=== PATIENT | female | born 1935 | race Caucasian/White ===

== ENCOUNTER → 2016-07-11 | Outpatient (CLI) | payer MEDICARE, OTHER ==
[~2016-07-11] MED LIST: ASPI81TA81 PO; CARV25TA PO; CIPR0.2S LEFT EAR; CIPR0.2S RIGHT EAR; CIPR250T2 PO; ESOM1CAP16 PO; FURO20TA PO; GLIP10TA6 PO; LISI10TA3 PO; NIAC500T18 PO; ONETMIS2; ONETTES4; PRED20 PO; SIMV80TA PO; VALA1TAB PO; VENTAER INH; VITA100064 PO
[2016-07-11 15:44] LABS: HEMATOCRIT 37.9 % (35.0-46.0); MEAN CELL VOLUME 80.3 FL (80.0-100.0); MEAN CORPUSCULAR HEMOGLOBIN 26.3 PG (27.0-34.0); MEAN CORPUSCULAR HGB CONC 32.8 % (32.0-36.0); PLATELET COUNT 219 TH/MM3 (150-450); RED BLOOD COUNT 4.72 MIL/MM3 (4.00-5.30); RED CELL DISTRIBUTION WIDTH 13.9 % (11.6-17.2); REVIEW FLAG FINAL; WHITE BLOOD COUNT 7.5 TH/MM3 (4.0-11.0)
[2016-07-11 15:48] LABS: BICARBONATE 28.5 MEQ/L (21.0-32.0); POTASSIUM 4.7 MEQ/L (3.5-5.1)
[2016-07-12 13:23] LABS: HEMOGLOBIN A1b 2.1 %; HEMOGLOBIN Ao 83.7 %; HEMOGLOBIN LA1C 1.6 %; HEMOGLOBIN P3 4.1 %
== END ==
LOC: PLAB 06:45
PROVIDERS: ATTEND Family Medicine
DX: E55.9 Vitamin D deficiency, unspecified (principal); I12.9 Hypertensive chronic kidney disease with stage 1 through stage 4 chronic kidney disease, or unspecified chronic kidney disease; N18.3 Chronic kidney disease, stage 3 (moderate); E11.22 Type 2 diabetes mellitus with diabetic chronic kidney disease
CPT/HCPCS: 36415; 80069; 82306; 83036; 83970; 85027

== ENCOUNTER 2016-11-18 06:42 | Day surgery (SDC) | payer MEDICARE, OTHER ==
[~2016-11-18] VITALS: Ht 154.9 cm; Wt 68.2 kg
[~2016-11-18 06:42] MED LIST changes: -ASPI81TA81 PO; -CIPR0.2S RIGHT EAR; -CIPR250T2 PO; -LISI10TA3 PO; -SIMV80TA PO
[2016-11-18] MEDS ORDERED: SODIUM CHLORIDE 0.9% 1000 ML IV SCH (07:00)
[2016-11-18 07:02] VITALS: BP 169/70; PULSE 77; RESP 20; TEMP 99.3; O2SAT 95
[2016-11-18] MEDS ORDERED: NITR1SUB3 SL (07:28)
[2016-11-18] MEDS ORDERED: NEXI40CA PO (07:28)
[2016-11-18] MEDS ORDERED: NIAC500T5 PO (07:28)
[2016-11-18] MEDS ORDERED: CHOL5000 PO (07:28)
[2016-11-18] MEDS ORDERED: IRON27TA PO (07:28)
[2016-11-18] MEDS ORDERED: ASPI81CH CHEW (07:28)
[2016-11-18] MEDS ORDERED: ceFAZolin 2 GM PREMIX 50 ML - implanted port/tunneled catheter insertion IV SCH (07:30)
[2016-11-18] MEDS ORDERED: VANCOMYCIN 1000 MG/NS 250 ML - implanted port/tunneled catheter IV SCH ×2 (07:30)
[2016-11-18] MEDS ORDERED: MIDAZOLAM HCL 5 MG/5 ML VIAL ONE (07:58)
[2016-11-18] MEDS ORDERED: fentaNYL CITRATE 250 MCG/5 ML AMP ONE (07:58)
[2016-11-18] MEDS ORDERED: POVIDONE IODINE 5% (ANTISEPSIS KIT) 4 APPLICATIONS EACH NARE SCH (08:00)
[2016-11-18] MEDS ORDERED: CHLORHEXIDINE GLUCONATE 2 % 1 PACK (2 CLOTHS) TOPICAL SCH (08:00)
[2016-11-18] MEDS ORDERED: LIDOCAINE 1%/EPINEPHrine 1:100,000 SOLN 20 ML VIAL ONE (08:23)
[2016-11-18 09:10] VITALS: BP 153/64; PULSE 77; RESP 16; TEMP 98.7; O2SAT 94
[2016-11-18 09:25] VITALS: BP 148/62; PULSE 81; RESP 18; O2SAT 96
[2016-11-18 09:55] VITALS: BP 160/77; PULSE 75; RESP 18; O2SAT 97
--- NOTE | 2016-11-18 09:57 | PD.RAD ---
Post Procedure Progress Note Pre Procedure Diagnosis: (1) Small cell lung cancer Post Procedure Diagnosis: (1) Small cell lung cancer Procedure Date: Nov 18, 2016 Supervising Radiologist: Samuel Fernández Proceduralist/Assist: Barb Gibbs, RT(R), Anna Dixon RT(R)() Anesthesia: Conscious Sedation Plan of Activity Patient to Unit: ROPU Patient Condition: Good Additional Comments: right IJ port placed See PACS Report for procedural detail/treatment Samuel Fernández MD Nov 18, 2016 09:57
[2016-11-18] MEDS ORDERED: SODIUM CHLORIDE 0.9% FLUSH 10 ML FLUSH IVF PRN (10:00)
[2016-11-18 10:25] VITALS: BP 154/63; PULSE 76; RESP 18; O2SAT 94
[2016-11-18 11:15] VITALS: BP 144/67; PULSE 81; RESP 18; O2SAT 96
== END 2016-11-18 11:20 | disposition home or self-care (01) ==
LOC: HROP 06:42 → HRIP 06:47 → HROP 11:20
PROVIDERS: ATTEND Internal Medicine
DX: C34.90 Malignant neoplasm of unspecified part of unspecified bronchus or lung (principal); I13.0 Hypertensive heart and chronic kidney disease with heart failure and stage 1 through stage 4 chronic kidney disease, or unspecified chronic kidney disease; N18.9 Chronic kidney disease, unspecified; I50.9 Heart failure, unspecified; I25.2 Old myocardial infarction; E78.00 Pure hypercholesterolemia, unspecified; K22.70 Barrett's esophagus without dysplasia
CPT/HCPCS: 36561; 76937; 77001; 99152; 99153; C1788; J0690; J1642; J2250; J3010; J3370; J7030; J7050

== ENCOUNTER 2016-11-24 12:20 | Inpatient (IN) | payer MEDICARE, OTHER ==
[2016-11-24] VITALS (9 sets, daily range): BP systolic 68–116; BP diastolic 33–68; PULSE 76–127; RESP 18–24; TEMP 98.3–98.4; O2SAT 90–99
[~2016-11-24] VITALS: Ht 157.5 cm; Wt 70.7 kg
[~2016-11-24 12:20] MED LIST changes: +ASPI81CH CHEW; +CHOL5000 PO; -CIPR0.2S LEFT EAR; -ESOM1CAP16 PO; +IRON27TA PO; +NEXI40CA PO; -NIAC500T18 PO; +NIAC500T5 PO; +NITR1SUB3 SL; -ONETMIS2; -PRED20 PO; -VALA1TAB PO; -VENTAER INH; -VITA100064 PO
--- NOTE | 2016-11-24 12:40 | PD ---
HPI Chief Complaint: Respiratory Distress Time Seen by Provider: 12:40 Travel History International Travel<30 days: No Contact w/Intl Traveler<30days: No Traveled to known affect area: No History of Present Illness HPI 81-year-old female with history of CAD, CHF, triple bypass, hypertension, diabetes, metastatic lung cancer followed by Dr. Aponte, resents to the emergency department for evaluation worsening shortness of breath. She reports no chest pain. Denies any episodes of lightheadedness or diaphoresis. Patient is accompanied by her daughter who states she recently finished radiation up in [place]. She is scheduled to start chemotherapy December 07. Patient states this morning she began having worsening shortness of breath. This is with minimal activity and at rest. She states it took her about 3 hours for her to catch her breath prior to calling her daughter to come to the emergency department. She is concerned that she may need to have oxygen at home. She denies any recent illnesses, fever, chills. No other symptoms to report. PFSH Past Medical History Arthritis: No Autoimmune Disease: No Heart Rhythm Problems: No Cancer: No Cardiac Catheterization: Yes Cardiovascular Problems: Yes (CHF, TRIPLE BYPASS) High Cholesterol: Yes Chemotherapy: Yes (dec 07) Congestive Heart Failure: Yes Cerebrovascular Accident: No Coronary Artery Disease: Yes Diabetes: Yes Diminished Hearing: Yes (WEARS BILAT HEARING AIDS) Endocrine: No GERD: Yes (acid reflux. Barrets disease, endoscope q2 yrs[address] Dr Conroy) Genitourinary: Yes Headaches: No Hepatitis: No Hiatal Hernia: No Hypertension: Yes Immune Disorder: No Musculoskeletal: No Neurologic: No Psychiatric: No Reproductive: No Respiratory: No Immunizations Current: No Migraines: No Myocardial Infarction: Yes Renal Failure: Yes (kidneys work at 47%, Dr Slaughter) Seizures: No Thyroid Disease: No PNEUMOCCOCAL Vaccine (Year): 2009 Past Surgical History Abdominal Surgery: No AICD: No Appendectomy: Yes Cardiac Surgery: Yes (CABG 2000) Coronary Artery Bypass Graft: Yes (TRIPLE) Ear Surgery: No Endocrine Surgery: No Eye Surgery: Yes (LEFT CATARACT SURGERY) Genitourinary Surgery: Yes (PROLAPSE BLADDER) Gynecologic Surgery: Yes (PARTIAL HYSTERECTOMY) Hysterectomy: Yes (97) Joint Replacement: No Oral Surgery: No Pacemaker: No Thoracic Surgery: No Tonsillectomy: Yes (AGE 7) Social History Alcohol Use: No Tobacco Use: No Substance Use: No Allergies-Medications (Allergen,Severity, Reaction): Coded Allergies: Ondansetron (Verified Allergy, Severe, Hives, 11/24/16) Reported Meds & Prescriptions Reported Meds & Active Scripts Active Carvedilol 25 Mg Tab 25 Mg PO BID Reported Centrum Silver Adult 50+ (Multiple Vitamins W/ Minerals) 1 Tab Tab 1 Tab PO DAILY Pantoprazole (Pantoprazole Sodium) 40 Mg Tab 40 Mg PO BID Niacin 500 Mg Tab 1,000 Mg PO HS Niacin 500 Mg Tab 500 Mg PO DAILY IN THE MORNING Lasix (Furosemide) 20 Mg Tab 20 Mg PO DAILY PRN Vitamin D3 (Cholecalciferol) 5,000 Unit Cap 5,000 Units PO EVERY OTHER DAY Nitroglycerin SL (Nitroglycerin) 0.4 Mg Subl 0.4 Mg SL DIRECTED PRN ONE TABLET UNDER THE TONGUE NEEDED FOR CHEST PAIN, MAY REPEAT EVERY FIVE MINUTES FOR A TOTAL OF 3 DOSES OR CALL 911 IF NO RELIEF Iron (Ferrous Gluconate) 27 Mg Tab 65 Mg PO EVERY OTHER DAY Onetouch Ultra Test Strips (Blood Glucose Test Strips) 1 Jayleen Jayleen 1 Strip .ROUTE DIRECTED Glipizide 10 Mg Tab 10 Mg PO BIDAC Take 30 minutes before a meal Review of Systems Except as stated in HPI: all other systems reviewed are Neg Physical Exam Narrative GENERAL: Clear and will but well-nourished appearing female patient, appears mildly short of breath but without any significant distress. SKIN: Focused skin assessment warm/dry. HEAD: Atraumatic. Normocephalic. EYES: Pupils equal and round. No scleral icterus. No injection or drainage. ENT: No nasal bleeding or discharge. Mucous membranes pink and moist. NECK: Trachea midline. No JVD. CARDIOVASCULAR: Tachycardic rate and irregular rhythm. RESPIRATORY: No accessory muscle use. Fine Crackles bilateral bases, greater on the right than the left. Breath sounds equal bilaterally. There is a visible port on the right anterior chest. GASTROINTESTINAL: Abdomen soft, non-tender, nondistended. Hepatic and splenic margins not palpable. MUSCULOSKELETAL: No obvious deformities. No clubbing. No cyanosis. No edema. NEUROLOGICAL: Awake and alert. No obvious cranial nerve deficits. Motor grossly within normal limits. Normal speech. PSYCHIATRIC: Appropriate mood and affect; insight and judgment normal. Data Data Last Documented VS Vital Signs Date Time Temp Pulse Resp B/P Pulse Ox O2 Delivery O2 Flow Rate FiO2 11/24/16 13:06 97 Nasal Cannula 2.00 11/24/16 12:37 98.3 127 22 92/49 Orders Complete Blood Count With Diff (11/24/16 12:38) Comprehensive Metabolic Panel (11/24/16 12:38) B-Type Natriuretic Peptide (11/24/16 12:38) Act Partial Throm Time (Ptt) (11/24/16 12:38) Prothrombin Time / Inr (Pt) (11/24/16 12:38) Ckmb (Isoenzyme) Profile (11/24/16 12:38) Troponin I (11/24/16 12:38) Urinalysis - C+S If Indicated (11/24/16 12:38) Blood Culture (11/24/16 12:38) Iv Access Insert/Monitor (11/24/16 12:38) Electrocardiogram (11/24/16 12:38) Ecg Monitoring (11/24/16 12:38) Oximetry (11/24/16 12:38) Oxygen Administration (11/24/16 12:38) Chest, Single Ap (11/24/16 12:38) Sodium Chloride 0.9% Flush (Ns Flush) (11/24/16 12:45) Lactic Acid Sepsis Protocol (11/24/16 12:38) Arterial Blood Gas (Abg) (11/24/16 ) Albuterol-Ipratropium Neb (Duoneb Neb) (11/24/16 13:00) Urine Culture (11/24/16 14:15) Ceftriaxone Inj (Rocephin Inj) (11/24/16 15:45) Labs Laboratory Tests Test 11/24/16 11/24/16 11/24/16 13:00 13:11 14:15 White Blood Count 5.8 TH/MM3 Red Blood Count 4.15 MIL/MM3 Hemoglobin 11.4 GM/DL Hematocrit 34.2 % Mean Corpuscular Volume 82.5 FL Mean Corpuscular Hemoglobin 27.5 PG Mean Corpuscular Hemoglobin 33.3 % Concent Red Cell Distribution Width 14.5 % Platelet Count 209 TH/MM3 Mean Platelet Volume 7.3 FL Neutrophils (%) (Auto) 74.8 % Lymphocytes (%) (Auto) 16.9 % Monocytes (%) (Auto) 6.6 % Eosinophils (%) (Auto) 0.9 % Basophils (%) (Auto) 0.8 % Neutrophils # (Auto) 4.3 TH/MM3 Lymphocytes # (Auto) 1.0 TH/MM3 Monocytes # (Auto) 0.4 TH/MM3 Eosinophils # (Auto) 0.1 TH/MM3 Basophils # (Auto) 0.0 TH/MM3 CBC Comment DIFF FINAL Differential Comment Prothrombin Time 11.1 SEC Prothromb Time International 1.0 RATIO Ratio Activated Partial 23.8 SEC Thromboplast Time Sodium Level 138 MEQ/L Potassium Level 3.9 MEQ/L Chloride Level 104 MEQ/L Carbon Dioxide Level 23.6 MEQ/L Anion Gap 10 MEQ/L Blood Urea Nitrogen 22 MG/DL Creatinine 1.80 MG/DL Estimat Glomerular Filtration 27 ML/MIN Rate Random Glucose 285 MG/DL Lactic Acid Level 1.8 mmol/L Calcium Level 8.3 MG/DL Total Bilirubin 0.4 MG/DL Aspartate Amino Transf 20 U/L (AST/SGOT) Alanine Aminotransferase 15 U/L (ALT/SGPT) Alkaline Phosphatase 78 U/L Total Creatine Kinase 44 U/L Troponin I 0.05 NG/ML B-Type Natriuretic Peptide 710 PG/ML Total Protein 5.5 GM/DL Albumin 2.2 GM/DL Blood Gas Puncture Site LT BRACHIAL Blood Gas Patient Temperature 98.6 Blood Gas HCO3 23 mmol/L Blood Gas Base Excess 0.2 mmol/L Blood Gas Oxygen Saturation 97 % Arterial Blood pH 7.48 Arterial Blood Partial 31 mmHg Pressure CO2 Arterial Blood Partial 100 mmHG Pressure O2 Arterial Blood Oxygen Content 16.3 Vol % Arterial Blood 1.3 % Carboxyhemoglobin Arterial Blood Methemoglobin 0.5 % Blood Gas Hemoglobin 11.9 G/DL Oxygen Delivery Device NASAL CANNULA Blood Gas Liter Flow 2 L/M Urine Color DARK-YELLOW Urine Turbidity CLOUDY Urine pH 8.0 Urine Specific [place] 1.023 Urine Protein 300 mg/dL Urine Glucose (UA) 70 mg/dL Urine Ketones NEG mg/dL Urine Occult Blood TRACE Urine Nitrite NEG Urine Bilirubin NEG Urine Urobilinogen 2.0 MG/DL Urine Leukocyte Esterase LARGE Urine RBC 8 /hpf Urine WBC /hpf Urine Squamous Epithelial 2 /hpf Cells Urine Amorphous Sediment RARE Urine Bacteria MANY /hpf Urine Hyaline Casts 10 /lpf Urine Mucus FEW /lpf Microscopic Urinalysis Comment CULTURE INDICATED MDM Medical Decision Making Medical Screen Exam Complete: Yes Emergency Medical Condition: Yes Medical Record Reviewed: Yes Differential Diagnosis CHF exacerbation versus COPD versus metastatic disease versus arrhythmia versus a left leg abnormality versus sepsis Narrative Course 81 year-old female presents to emergency department for evaluation worsening shortness of breath. Patient arrives and she is quite hypotensive. She is noted be in A. fib and has no history of this. Heart rate is variable from 80- 90 bpm to 120-130 beats per minute. Chest x-ray shows mild pulmonary vascular congestion. [id number] is in good position. CBC is without acute concern. CMP is with slight worsening in creatinine of 1.80 and a GFR 27. Troponin is 0.05. BNP is 710. Lactic acid is 1.8. Patient's urine is cloudy with 300 proteinuria, 70 glucose, trace focal blood, large leukocyte esterase, 8 RBC, innumerable WBC, many bacteria, few mucus. Culture is indicated. Patient is given 1 g of Rocephin. I discussed the patient my attending physician who is also assess the patient. Call has been placed to resident service for admission. Plan is discussed with the patient and their daughter. They are in agreement with this plan of care. Diagnosis Primary Impression: New onset a-fib Additional Impressions: Dyspnea Qualified Code: R06.02 - Shortness of breath CHF exacerbation Qualified Code: I50.9 - Acute on chronic congestive heart failure, unspecified congestive heart failure type UTI (urinary tract infection) Qualified Code: N39.0 - Urinary tract infection with hematuria, site unspecified Small cell lung cancer Qualified Code: C34.90 - Small cell lung cancer, unspecified laterality Brain metastases Condition: Alona Edwards Nov 24, 2016 12:40
[2016-11-24] MEDS ORDERED: SODIUM CHLORIDE 0.9% FLUSH 10 ML FLUSH IVF PRN (12:45)
[2016-11-24] MEDS ORDERED: RESP: ALBUTEROL 2.5 MG/IPRATROPIUM 0.5 MG NEB (SCH) NEB ONE (13:00)
[2016-11-24 13:19] LABS: AUTOMATED NEUTROPHIL # 4.3 TH/MM3 (1.8-7.7); BASOPHIL % 0.8 % (0.0-2.0); EOSINOPHIL # 0.1 TH/MM3 (0-0.4); EOSINOPHIL % 0.9 % (0.0-4.0); HEMATOCRIT 34.2 % (35.0-46.0); HEMO FLAGS DIFF FINAL; LYMPH % 16.9 % (9.0-44.0); MEAN CELL VOLUME 82.5 FL (80.0-100.0); MEAN CORPUSCULAR HEMOGLOBIN 27.5 PG (27.0-34.0); MEAN CORPUSCULAR HGB CONC 33.3 % (32.0-36.0); MONO % 6.6 % (0.0-8.0); NEUT % 74.8 % (16.0-70.0); PLATELET COUNT 209 TH/MM3 (150-450); RED BLOOD COUNT 4.15 MIL/MM3 (4.00-5.30); RED CELL DISTRIBUTION WIDTH 14.5 % (11.6-17.2); WHITE BLOOD COUNT 5.8 TH/MM3 (4.0-11.0)
[2016-11-24 13:20] LABS: BLOOD GAS BASE EXCESS 0.2 mmol/L (-2-2); BLOOD GAS CARBOXYHEMOGLOBIN 1.3 % (0-4); BLOOD GAS HCO3 23 mmol/L (22-26); BLOOD GAS METHEMOGLOBIN 0.5 % (0-2); BLOOD GAS O2 HGB SATURATION 97 % (90-100); BLOOD GAS OXYGEN CONTENT 16.3 Vol % (12.0-20.0); BLOOD GAS PCO2 31 mmHg (38-42); BLOOD GAS PO2 100 mmHG (61-120); BLOOD GAS TOTAL HGB 11.9 G/DL (12.0-16.0); CRITICAL VALUE NO; LITER FLOW 2 L/M; OXYGEN DEVICE NASAL CANNULA; TEMP CORR TO 98.6
[2016-11-24 13:21] LABS: DRAW SITE LT BRACHIAL; NUMBER OF ARTERIAL PUNCTURES 1; STAT YES; ULNAR PULSE Y
[2016-11-24 13:26] LABS: APTT (PATIENT) 23.8 SEC (24.3-30.1); PROTHROMBIN TIME - PATIENT 11.1 SEC (9.8-11.6)
[2016-11-24 13:33] LABS: ALT (GPT) 15 U/L (10-53); ANION GAP 10 MEQ/L (5-15); AST (GOT) 20 U/L (15-37); BICARBONATE 23.6 MEQ/L (21.0-32.0); BLOOD UREA NITROGEN 22 MG/DL (7-18); CHLORIDE 104 MEQ/L (98-107); GLOMERULAR FILTRATION RATE 27 ML/MIN (>89); POTASSIUM 3.9 MEQ/L (3.5-5.1); SODIUM (NA) 138 MEQ/L (136-145)
[2016-11-24 13:37] LABS: ALKALINE PHOSPHATASE 78 U/L (45-117); TOTAL BILIRUBIN ADULT 0.4 MG/DL (0.2-1.0)
[2016-11-24 13:38] LABS: CREATINE KINASE 44 U/L (26-192)
--- NOTE | 2016-11-24 14:38 | RADRPT ---
EXAM DATE/TIME: 11/24/2016 13:24 [facility] COMPARISON: No previous studies available for comparison. INDICATIONS : Shortness of breath. MEDICAL HISTORY : Carcinoma, lung. SURGICAL HISTORY : CABG. Port placement ENCOUNTER: Initial ACUITY: 1 day PAIN SCORE: 4/10 LOCATION: Bilateral upper chest FINDINGS: Single view of the chest demonstrates there is a right IJ [id number] catheter in goo d position. There are numerous sternal wire clips suggesting CABG. Mild pulmonary hilar vascular co ngestion. No focal infiltrate or mass. No pneumothorax. Bones are unremarkable. CONCLUSION: Mild pulmonary vascular. [id number] in good position. Blayne Pappas MD on November 24, 2016 at 14:24 Board Certified Radiologist. This report was verified electronically.
[2016-11-24] MEDS ORDERED: NIAC500T5 PO ×2 (15:00)
[2016-11-24] MEDS ORDERED: FURO1TAB62 PO (15:00)
[2016-11-24] MEDS ORDERED: PANT40TA3 PO (15:02)
[2016-11-24] MEDS ORDERED: MULT1TAB PO (15:02)
[2016-11-24 15:13] LABS: BACTERIA, URINE MANY /hpf; BLOOD, URINE TRACE (NEG); COMMENT (UR) CULTURE INDICATED; CULTURE IF INDICATED CULTURE INDICATED; GLUCOSE,URINE 70 mg/dL (NEG); HYALINE CAST, URINE 10 /lpf (RARE); KETONE, URINE NEG (NEG); MUCUS URINE FEW /lpf (OCC); NITRITE,URINE NEG (NEG); SQUAMOUS EPITHELIAL CELL URINE 2 /hpf (0-5); URINE COLOR DARK-YELLOW (YELLW/STRAW)
[2016-11-24] MEDS ORDERED: cefTRIAXone INJ 1,000 MG in SODIUM CHLORIDE 0.9% INJ 100 ML IV ONE (15:45)
[2016-11-24] MEDS ORDERED: METOPROLOL TARTRATE 25 MG TAB PO STA (15:49)
--- NOTE | 2016-11-24 16:15 | PD ---
Physical Exam Narrative I, Dr. Geller, have reviewed the advance practice practitioner's documentation and am in agreement, met with the patient face to face, made the diagnosis, and the medical decision making was done by me. *My assessment and Findings: CHF exacerbation vs. Pneumonia vs. afib RVR 81yo F with PMH of metastatic lung CA sent by oncologist Dr. Aponte for sob. Pt initially has fluctuating HR from 120s to 80s. BP was low initially and repeat BP was improved without any treatment. Pt is clinically nontoxic appearing. No fever. Labs reviewed, no leukocytosis. BNP elevated at 710. Creatinine elevated at 1.80 but it's at baseline. UA showed large leukocyte. Culture indicated so pt given ceftriaxone. Denies history of afib so it is new. Since it fluctuates from 120s to 80s while just standing there, will give metoprolol 25mg PO. CXR showed mild pulmonary vascular. Will admit for new onset afb and CHF. Data Data Last Documented VS Vital Signs Date Time Temp Pulse Resp B/P Pulse Ox O2 Delivery O2 Flow Rate FiO2 11/24/16 15:54 85 20 116/52 99 Nasal Cannula 2 11/24/16 12:37 98.3 Orders Complete Blood Count With Diff (11/24/16 12:38) Comprehensive Metabolic Panel (11/24/16 12:38) B-Type Natriuretic Peptide (11/24/16 12:38) Act Partial Throm Time (Ptt) (11/24/16 12:38) Prothrombin Time / Inr (Pt) (11/24/16 12:38) Ckmb (Isoenzyme) Profile (11/24/16 12:38) Troponin I (11/24/16 12:38) Urinalysis - C+S If Indicated (11/24/16 12:38) Blood Culture (11/24/16 12:38) Iv Access Insert/Monitor (11/24/16 12:38) Electrocardiogram (11/24/16 12:38) Ecg Monitoring (11/24/16 12:38) Oximetry (11/24/16 12:38) Oxygen Administration (11/24/16 12:38) Chest, Single Ap (11/24/16 12:38) Sodium Chloride 0.9% Flush (Ns Flush) (11/24/16 12:45) Lactic Acid Sepsis Protocol (11/24/16 12:38) Arterial Blood Gas (Abg) (11/24/16 ) Albuterol-Ipratropium Neb (Duoneb Neb) (11/24/16 13:00) Urine Culture (11/24/16 14:15) Ceftriaxone Inj (Rocephin Inj) (11/24/16 15:45) Metoprolol Tartrate (Lopressor) (11/24/16 15:49) Admit Order (Ed Use Only) (11/24/16 16:18) Labs Laboratory Tests Test 11/24/16 11/24/16 11/24/16 13:00 13:11 14:15 White Blood Count 5.8 TH/MM3 Red Blood Count 4.15 MIL/MM3 Hemoglobin 11.4 GM/DL Hematocrit 34.2 % Mean Corpuscular Volume 82.5 FL Mean Corpuscular Hemoglobin 27.5 PG Mean Corpuscular Hemoglobin 33.3 % Concent Red Cell Distribution Width 14.5 % Platelet Count 209 TH/MM3 Mean Platelet Volume 7.3 FL Neutrophils (%) (Auto) 74.8 % Lymphocytes (%) (Auto) 16.9 % Monocytes (%) (Auto) 6.6 % Eosinophils (%) (Auto) 0.9 % Basophils (%) (Auto) 0.8 % Neutrophils # (Auto) 4.3 TH/MM3 Lymphocytes # (Auto) 1.0 TH/MM3 Monocytes # (Auto) 0.4 TH/MM3 Eosinophils # (Auto) 0.1 TH/MM3 Basophils # (Auto) 0.0 TH/MM3 CBC Comment DIFF FINAL Differential Comment Prothrombin Time 11.1 SEC Prothromb Time International 1.0 RATIO Ratio Activated Partial 23.8 SEC Thromboplast Time Sodium Level 138 MEQ/L Potassium Level 3.9 MEQ/L Chloride Level 104 MEQ/L Carbon Dioxide Level 23.6 MEQ/L Anion Gap 10 MEQ/L Blood Urea Nitrogen 22 MG/DL Creatinine 1.80 MG/DL Estimat Glomerular Filtration 27 ML/MIN Rate Random Glucose 285 MG/DL Lactic Acid Level 1.8 mmol/L Calcium Level 8.3 MG/DL Total Bilirubin 0.4 MG/DL Aspartate Amino Transf 20 U/L (AST/SGOT) Alanine Aminotransferase 15 U/L (ALT/SGPT) Alkaline Phosphatase 78 U/L Total Creatine Kinase 44 U/L Troponin I 0.05 NG/ML B-Type Natriuretic Peptide 710 PG/ML Total Protein 5.5 GM/DL Albumin 2.2 GM/DL Thyroid Stimulating Hormone 1.020 uIU/ML 3rd Gen Blood Gas Puncture Site LT BRACHIAL Blood Gas Patient Temperature 98.6 Blood Gas HCO3 23 mmol/L Blood Gas Base Excess 0.2 mmol/L Blood Gas Oxygen Saturation 97 % Arterial Blood pH 7.48 Arterial Blood Partial 31 mmHg Pressure CO2 Arterial Blood Partial 100 mmHG Pressure O2 Arterial Blood Oxygen Content 16.3 Vol % Arterial Blood 1.3 % Carboxyhemoglobin Arterial Blood Methemoglobin 0.5 % Blood Gas Hemoglobin 11.9 G/DL Oxygen Delivery Device NASAL CANNULA Blood Gas Liter Flow 2 L/M Urine Color DARK-YELLOW Urine Turbidity CLOUDY Urine pH 8.0 Urine Specific [place] 1.023 Urine Protein 300 mg/dL Urine Glucose (UA) 70 mg/dL Urine Ketones NEG mg/dL Urine Occult Blood TRACE Urine Nitrite NEG Urine Bilirubin NEG Urine Urobilinogen 2.0 MG/DL Urine Leukocyte Esterase LARGE Urine RBC 8 /hpf Urine WBC /hpf Urine Squamous Epithelial 2 /hpf Cells Urine Amorphous Sediment RARE Urine Bacteria MANY /hpf Urine Hyaline Casts 10 /lpf Urine Mucus FEW /lpf Microscopic Urinalysis Comment CULTURE INDICATED MDM Supervised Visit with THIERRY: Yes Diagnosis Primary Impression: New onset a-fib Additional Impressions: Brain metastases Dyspnea Qualified Code: R06.02 - Shortness of breath Small cell lung cancer Qualified Code: C34.90 - Small cell lung cancer, unspecified laterality UTI (urinary tract infection) CHF exacerbation Qualified Code: I50.9 - Acute on chronic congestive heart failure, unspecified congestive heart failure type Condition: Stable Yaima Geller DO Nov 24, 2016 16:15
--- NOTE | 2016-11-24 16:21 | HHI.HP ---
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 She called her oncologist Dr. Aponte who recommended she be brought to the ER for further evaluation. While in the ER, her shortness of breath resolved on its own. On arrival to bedside, patient denies chest pain, shortness of breath, palpitations, or any pain. On further review, she endorses dysuria and urinary frequency. Denies fevers or chills. Review of Systems Constitutional: COMPLAINS OF: Fatigue, DENIES: Fever, Chills Eyes: DENIES: Blurred vision Respiratory: COMPLAINS OF: Shortness of breath, DENIES: Cough, Wheezing Cardiovascular: DENIES: Chest pain, Palpitations, Syncope, Lower Extremity Edema Gastrointestinal: DENIES: Abdominal pain, Black stools, Bloody stools Genitourinary: COMPLAINS OF: Urinary frequency, Dysuria Musculoskeletal: DENIES: Joint pain Integumentary: DENIES: Rash Hematologic/lymphatic: DENIES: Bruising Neurologic: DENIES: Abnormal gait, Headache, Localized weakness Psychiatric: DENIES: Anxiety, Depression Past Family Social History Past Medical History - 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 (baseline Cr ~1.4) - DM type 2 - HTN - CAD (s/p CABG and AK x 1) - Chatman's esophagus - Vitamin D insufficiency - Hypertriglyceridemia - Hearing aid use bilaterally - 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 Past Surgical History - 3-vessel CABG - Pelvic prolapse - Tonsillectomy Allergies: Coded Allergies: Ondansetron (Verified Allergy, Severe, Hives, 11/24/16) Family History - Father: (age 47, [place]) - Mother: (age 86, natural causes) - Sister: DM at 67 - Brother: DM Social History - Tobacco: former (age 24-60s, 1 PPD) - EtOH: denies - Recreational drugs: denies Physical Exam Vital Signs Vital Signs Date Time Temp Pulse Resp B/P Pulse Ox O2 Delivery O2 Flow Rate FiO2 7/20/17 15:54 85 20 116/52 99 Nasal Cannula 2 11/24/16 13:06 97 Nasal Cannula 2.00 11/24/16 12:41 97 Nasal Cannula 2 11/24/16 12:37 98.3 127 22 92/49 95 11/24/16 12:23 98.4 120 24 68/33 90 Room Air Physical Exam GENERAL: Well-developed, well-nourished, chronically ill-appearing adult white female lying in bed comfortable SKIN: No rashes, ecchymoses or lesions. Cool and dry. HEAD: NC/AT EYES: PERRL. EOMI. No conjunctival injection or drainage. ENT: MMM, OP without erythema, tonsillar swelling, or exudate. NECK: Supple, no lymphadenopathy. No JVD. CARDIOVASCULAR: Normal rate, irregularly irregular rhythm. Normal S1/S2. No MRG RESPIRATORY: CTAB. No crackles or wheezes. GASTROINTESTINAL: Abdomen soft, non-distended, non-tender. No hepato- splenomegaly or palpable masses. MUSCULOSKELETAL: Extremities without clubbing, cyanosis, or edema. NEUROLOGICAL: Awake and alert. Cranial nerves II through XII grossly intact. Moves all extremities without difficulty. Normal speech. Laboratory Laboratory Tests Test 11/24/16 11/24/16 11/24/16 13:00 13:11 14:15 White Blood Count 5.8 Red Blood Count 4.15 Hemoglobin 11.4 Hematocrit 34.2 Mean Corpuscular Volume 82.5 Mean Corpuscular Hemoglobin 27.5 Mean Corpuscular Hemoglobin 33.3 Concent Red Cell Distribution Width 14.5 Platelet Count 209 Mean Platelet Volume 7.3 Neutrophils (%) (Auto) 74.8 Lymphocytes (%) (Auto) 16.9 Monocytes (%) (Auto) 6.6 Eosinophils (%) (Auto) 0.9 Basophils (%) (Auto) 0.8 Neutrophils # (Auto) 4.3 Lymphocytes # (Auto) 1.0 Monocytes # (Auto) 0.4 Eosinophils # (Auto) 0.1 Basophils # (Auto) 0.0 CBC Comment DIFF FINAL Differential Comment Prothrombin Time 11.1 Prothromb Time International 1.0 Ratio Activated Partial 23.8 Thromboplast Time Sodium Level 138 Potassium Level 3.9 Chloride Level 104 Carbon Dioxide Level 23.6 Anion Gap 10 Blood Urea Nitrogen 22 Creatinine 1.80 Estimat Glomerular Filtration 27 Rate Random Glucose 285 Lactic Acid Level 1.8 Calcium Level 8.3 Total Bilirubin 0.4 Aspartate Amino Transf 20 (AST/SGOT) Alanine Aminotransferase 15 (ALT/SGPT) Alkaline Phosphatase 78 Total Creatine Kinase 44 Troponin I 0.05 B-Type Natriuretic Peptide 710 Total Protein 5.5 Albumin 2.2 Blood Gas Puncture Site LT BRACHIAL Blood Gas Patient Temperature 98.6 Blood Gas HCO3 23 Blood Gas Base Excess 0.2 Blood Gas Oxygen Saturation 97 Arterial Blood pH 7.48 Arterial Blood Partial 31 Pressure CO2 Arterial Blood Partial 100 Pressure O2 Arterial Blood Oxygen Content 16.3 Arterial Blood 1.3 Carboxyhemoglobin Arterial Blood Methemoglobin 0.5 Blood Gas Hemoglobin 11.9 Oxygen Delivery Device NASAL CANNULA Blood Gas Liter Flow 2 Urine Color DARK-YELLOW Urine Turbidity CLOUDY Urine pH 8.0 Urine Specific [place] 1.023 Urine Protein 300 Urine Glucose (UA) 70 Urine Ketones NEG Urine Occult Blood TRACE Urine Nitrite NEG Urine Bilirubin NEG Urine Urobilinogen 2.0 Urine Leukocyte Esterase LARGE Urine RBC 8 Urine WBC Urine Squamous Epithelial 2 Cells Urine Amorphous Sediment RARE Urine Bacteria MANY Urine Hyaline Casts 10 Urine Mucus FEW Microscopic Urinalysis Comment CULTURE INDICATED Date/Time Procedure Status Source Growth 11/24/16 14:15 Urine Culture Received Urine Random Urine Pending 11/24/16 13:00 Aerobic Blood Culture Received Blood Peripheral Pending 11/24/16 13:00 Anaerobic Blood Culture Received Blood Peripheral Pending Result Diagram: 11/24/16 1300 11/24/16 1300 Imaging Last Impressions Chest X-Ray 11/24/16 1238 Signed Impressions: Service Date/Time: November 13:24 - CONCLUSION: Mild pulmonary vascular. [id number] in good position. Blayne Pappas MD Assessment and Plan Assessment and Plan 81-year-old female with history of diabetes, coronary artery disease status post CABG, stage IV lung cancer presenting with: Problem List: (1) New onset a-fib Status: Acute Plan: New-onset atrial fibrillation, patient asymptomatic. No history of stroke. Currently rate controlled CHADS2-VASC score of 5 HAS-BLED score of 2 TnI 0.05 TSH wnl - Admit to inpatient - Continue home Coreg 25 mg daily - Consult cardiology; patient known to Dr. 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 Without hypoxia, likelihood of PE is minimal. Wells score 2.5 due to cancer diagnosis, initial tachycardia - Rule out AK as above - Continuous pulse oximetry, titrate oxygen by nasal cannula - Despite Wells score of 2.5, clinically does not appear to have PE and vitals are now within normal limits; initial tachycardia likely due to hypotension on arrival to ED which has now resolved - monitor vitals; if tachycardia or hypoxia develop, consider V/Q scan or CTA to r/o PE (3) Chronic kidney disease, stage III (moderate) Status: Chronic Plan: Currently acute on chronic with creatinine of 1.8 from baseline of about 1.4 Urinalysis with significant ketones, clinically patient appears dehydrated - Normal saline at 50 mL per hour (half maintenance due to history of CHF) (4) Small cell lung cancer Status: Acute Plan: Symptoms stable - Continue outpatient follow-up (5) Congestive heart failure Status: Chronic Plan: CHF history per patient, and on CHF medication; no recent echocardiogram available - Consult cardiology as above - Continue home Coreg - Caution with IV fluids (6) Hypertension Status: Chronic Plan: Blood pressure within normal limits and stable at present Continue home Coreg (7) DM (diabetes mellitus), type 2 with renal complications Status: Chronic Plan: Serum glucose currently in the low 200s Hold home diabetes medications Based on estimated insulin requirements: - Levemir 10 units twice a day - Insulin aspart 7 units 3 times a day before meals - Insulin aspart sliding scale low-dose (1-5 units 3 times a day before meals based on glucose) - Glucose checks before meals and at bedtime (8) FEN Status: Acute Plan: Fluids: As above Electrolytes: Monitor and replete as needed Nutrition: Diet regular basic DVT: Heparin 5000 mg 3 times a day GI: Continue home Protonix 40 mg 3 times a day for Chatman's esophagus CODE STATUS: Full code Physician Certification 2 Midnight Certification Type: Admission for Inpatient Services Order for Inpatient Services The services are ordered in accordance with Medicare regulations or non- Medicare payer requirements, as applicable. In the case of services not specified as inpatient-only, they are appropriately provided as inpatient services in accordance with the 2-midnight benchmark. Estimated LOS (days): 2 days is the estimated time the patient will need to remain in the hospital, assuming treatment plan goals are met and no additional complications. Post-Hospital Plan: Home Problem Qualifiers (1) Dyspnea: Qualified Code: R06.02 - Shortness of breath (2) Small cell lung cancer: Qualified Code: C34.90 - Small cell lung cancer, unspecified laterality (3) Hypertension: Qualified Code: I10 - Essential hypertension (4) DM (diabetes mellitus), type 2 with renal complications: Edward Brewer MD R1 Nov 24, 2016 16:21
[2016-11-24] MEDS ORDERED: BISACODYL 10 MG SUPP RECTAL PRN (16:45)
[2016-11-24] MEDS ORDERED: MAGNESIUM HYDROXIDE SUSP 30 ML CUP PO PRN (16:45)
[2016-11-24] MEDS ORDERED: SENNOSIDES 8.6 MG TAB PO PRN (16:45)
[2016-11-24] MEDS ORDERED: SODIUM CHLORIDE 0.9% FLUSH 10 ML FLUSH IV FLUSH PRN (16:45)
[2016-11-24] MEDS ORDERED: LACTULOSE SYRUP 20 GM/30 ML CUP PO PRN (16:45)
[2016-11-24] MEDS ORDERED: NALOXONE HCL 0.4 MG/ML AMP IV PRN (16:45)
[2016-11-24] MEDS ORDERED: DEXTROSE 50% IN WATER 50 ML VIAL(D50) IV PRN (17:30)
[2016-11-24] MEDS ORDERED: GLUCAGON 1 MG/ML VIAL OTHER PRN (17:30)
[2016-11-24] MEDS ORDERED: SODIUM CHLOR 0.9% 1000 ML INJ 1,000 ML IV SCH (17:30)
[2016-11-24] MEDS: HEPARIN SODIUM - SQ 10,000 UNITS/ML VIAL SQ SCH (19:15)
[2016-11-24] MEDS: CARVEDILOL 12.5 MG TAB PO SCH (20:43)
[2016-11-24] MEDS: DOCUSATE SODIUM 50 MG/SENNA 8.6 MG TAB PO SCH (20:43)
[2016-11-24] MEDS: PANTOPRAZOLE SOD 40 MG DELAYED RELEASE TAB PO SCH (20:43)
[2016-11-24] MEDS: INSULIN DETEMIR 100 UNITS/ML VIAL SQ SCH (20:43)
[2016-11-24] MEDS ORDERED: DIGOXIN 0.5 MG/2 ML VIAL IV PUSH ONE (21:00)
[2016-11-24] MEDS: INSULIN ASPART SUPPLEMENTAL SCALE SQ SCH (21:00)
[2016-11-24] MEDS: SODIUM CHLORIDE 0.9% FLUSH 10 ML FLUSH IV FLUSH SCH (21:24)
--- NOTE | 2016-11-24 22:26 | RADRPT ---
EXAM DATE/TIME: 11/24/2016 21:53 [place] COMPARISON: CHEST SINGLE AP, November 24, 2016, 13:24. INDICATIONS : Shortness of breath for one day. DOSE: 8.6 mCi Tc99m MAA IV 0.88 mCi Tc99m DTPA aerosol MEDICAL HISTORY : Diabetes mellitus type 2. Carcinoma, lung. Cardiovascular disease SURGICAL HISTORY : Tonsillectomy. CABG ENCOUNTER: Initial ACUITY: 1 day PAIN SCALE: 0/10 LOCATION: chest TECHNIQUE: Following five minutes of tidal breathing of DTPA aerosol, planar images of the lungs were performed in eight projections. The patient was then injected with MAA, and eight-view perfusion scan was perf ormed. FINDINGS: There is homogeneous distribution of radiotracer on the ventilatory and perfusion images. There is a large perfusion defect right upper lung and this is a mismatch. CONCLUSION: Large right upper V/Q mismatch. High probability scan. Joel Martin MD on November 24, 2016 at 22:21 Board Certified Radiologist. This report was verified electronically.
[2016-11-25] VITALS (9 sets, daily range): BP systolic 105–135; BP diastolic 53–60; PULSE 67–82; RESP 16–17; TEMP 97–100.1; O2SAT 97–98
[2016-11-25] MEDS: HEPARIN-D5W INJ 250 ML IV SCH ×2 (00:04→15:08)
[2016-11-25] MEDS: HEPARIN SODIUM - SQ 10,000 UNITS/ML VIAL SQ SCH ×2 (04:00→12:00)
[2016-11-25] MEDS ORDERED: HEPARIN SODIUM - IV 10,000 UNITS/10 ML VIAL IV PRN ×2 (04:45)
[2016-11-25] MEDS: cefTRIAXone INJ 1,000 MG in SODIUM CHLORIDE 0.9% INJ 100 ML IV SCH ×2 (05:22→15:03)
[2016-11-25] MEDS: INSULIN ASPART SUPPLEMENTAL SCALE SQ SCH ×4 (05:43→21:52)
[2016-11-25 07:05] LABS: APTT (PATIENT) 89.2 SEC (24.3-30.1)
[2016-11-25] MEDS: INSULIN ASPART 1,000 UNITS/10 ML VIAL SQ SCH ×3 (08:00→18:46)
--- NOTE | 2016-11-25 08:48 | EKG ---
Date Performed: 11/24/2016 Time Performed: 20:01:26 PTAGE: 81 years EKG: atrial fibrillation with rapid ventricular response SEPTAL MYOCARDIAL INFARCTION ABNORMAL ECG PREVIOUS TRACING : 11/24/2016 17.28 Compared to prior tracing no significant change DOCTOR: Tyler Nolen Interpretating Date/Time 11/28/2016 12:43:16
[2016-11-25] MEDS ORDERED: METOPROLOL TARTRATE 25 MG TAB PO SCH (09:00)
[2016-11-25] MEDS: SODIUM CHLORIDE 0.9% FLUSH 10 ML FLUSH IV FLUSH SCH ×2 (09:00→21:53)
[2016-11-25] MEDS ORDERED: DIGOXIN 0.5 MG/2 ML VIAL IV PUSH SCH (09:00)
[2016-11-25] MEDS: DIGOXIN 0.125 MG TAB PO SCH (09:42)
[2016-11-25] MEDS: MULTIVITAMINS/MINERALS THERAPEUTIC TAB PO SCH (09:42)
[2016-11-25] MEDS: ASPIRIN 81 MG CHEW TAB PO SCH (09:42)
[2016-11-25] MEDS: DOCUSATE SODIUM 50 MG/SENNA 8.6 MG TAB PO SCH ×2 (09:42→21:31)
[2016-11-25] MEDS: CARVEDILOL 12.5 MG TAB PO SCH ×2 (09:43→21:31)
[2016-11-25] MEDS: PANTOPRAZOLE SOD 40 MG DELAYED RELEASE TAB PO SCH ×2 (09:43→21:31)
[2016-11-25] MEDS: INSULIN DETEMIR 100 UNITS/ML VIAL SQ SCH ×2 (09:48→21:52)
--- NOTE | 2016-11-25 11:02 | HHI.FPPN ---
Subjective Remarks Patient interviewed with daughter at bedside. Patient is requesting to go home. Patient and daughter state she has been given less than 6 months to live and they are requesting hospice services. She feels much better this morning and would like to go home today if possible. She denies fever, chills, nausea, vomiting, shortness of breath. Objective Vitals Vital Signs Date Time Temp Pulse Resp B/P Pulse Ox O2 Delivery O2 Flow Rate FiO2 11/25/16 08:00 97.9 69 16 135/60 98 11/25/16 04:00 97.0 81 17 112/56 97 11/24/16 23:30 78 11/24/16 23:01 98.3 76 18 102/50 98 11/24/16 20:32 125 11/24/16 19:38 118 24 91/55 97 Nasal Cannula 2 11/24/16 17:35 120 22 99/68 96 11/24/16 15:54 85 20 116/52 99 Nasal Cannula 2 11/24/16 13:06 97 Nasal Cannula 2.00 11/24/16 12:41 97 Nasal Cannula 2 11/24/16 12:37 98.3 127 22 92/49 95 11/24/16 12:23 98.4 120 24 68/33 90 Room Air I/O 11/24/16 11/24/16 11/24/16 11/25/16 11/25/16 11/25/16 07:00 15:00 23:00 07:00 15:00 23:00 Intake Total 208 ml Balance 208 ml Intake IV Total 208 ml # Voids 1 1 3 Result Diagram: 11/24/16 1300 11/24/16 1300 Imaging Last Impressions Chest X-Ray 11/24/16 1238 Signed Impressions: Service Date/Time: November 13:24 - CONCLUSION: Mild pulmonary vascular. [id number] in good position. Blayne Pappas MD Lung Scan-VQ Nuclear Medicine 11/24/16 0000 Signed Impressions: Service Date/Time: November 21:53 - CONCLUSION: Large right upper V/Q mismatch. High probability scan. Joel Martin MD Objective Remarks GENERAL: Well-developed, well-nourished, chronically ill-appearing adult white female lying in bed comfortable SKIN: No rashes, ecchymoses or lesions. Cool and dry. HEAD: NC/AT EYES: PERRL. EOMI. No conjunctival injection or drainage. ENT: MMM, OP without erythema, tonsillar swelling, or exudate. NECK: Supple, no lymphadenopathy. No JVD. CARDIOVASCULAR: Normal rate, irregularly irregular rhythm. Normal S1/S2. No MRG RESPIRATORY: CTAB. No crackles or wheezes. GASTROINTESTINAL: Abdomen soft, non-distended, non-tender. No hepato- splenomegaly or palpable masses. MUSCULOSKELETAL: Extremities without clubbing, cyanosis, or edema. NEUROLOGICAL: Awake and alert. Cranial nerves II through XII grossly intact. Moves all extremities without difficulty. Normal speech. A/P Assessment and Plan 81-year-old female with history of diabetes, coronary artery disease status post CABG, stage IV lung cancer presenting with pulmonary embolism, atrial fibrillation, urinary tract infection. Discharge Planning Pending oncology and hospice evaluation. Problem List: (1) Pulmonary embolism Status: Acute Plan: VQ scan shows high probability of PE Continue heparin drip Patient will likely need to be on long-term anticoagulation at home or with hospice Hospice evaluation pending (2) New onset a-fib Status: Acute Plan: Currently rate controlled. Cardiology consultation Heparin drip as above - Continue home Coreg 25 mg daily (3) UTI (urinary tract infection) Status: Acute Plan: Urine micro-pending Continue ceftriaxone daily (4) Chronic kidney disease, stage III (moderate) Status: Chronic Plan: Continue light fluid hydration We'll monitor (5) Small cell lung cancer Status: Chronic Plan: Known to Dr. Aponte Consult oncology Hospice consult (6) Congestive heart failure Status: Chronic Plan: - Consult cardiology as above - Continue home Coreg - Caution with IV fluids (7) Hypertension Status: Chronic Plan: Continue home coreg (8) DM (diabetes mellitus), type 2 with renal complications Status: Chronic Plan: Continue Levemir 10 units twice a day Sliding scale insulin (9) FEN Status: Acute Plan: Fluids: As above Electrolytes: Monitor and replete as needed Nutrition: Diet regular basic DVT: Heparin drip as above GI: Continue home Protonix 40 mg 3 times a day for Chatman's esophagus CODE STATUS: DO NOT RESUSCITATE Problem Qualifiers (1) Small cell lung cancer: Qualified Code: C34.90 - Small cell lung cancer, unspecified laterality (2) Hypertension: Qualified Code: I10 - Essential hypertension (3) DM (diabetes mellitus), type 2 with renal complications: Tejinder Viveros MD R2 Nov 25, 2016 11:02 meals based on glucose) - Glucose checks before meals and at bedtime (8) FEN Status: Acute Plan: Fluids: As above Electrolytes: Monitor and replete as needed Nutrition: Diet regular basic DVT: Heparin 5000 mg 3 times a day GI: Continue home Protonix 40 mg 3 times a day for Chatman's esophagus CODE STATUS: Full code Problem Qualifiers (1) Dyspnea: Qualified Code: R06.02 - Shortness of breath (2) Small cell lung cancer: Qualified Code: C34.90 - Small cell lung cancer, unspecified laterality (3) Hypertension: Qualified Code: I10 - Essential hypertension (4) DM (diabetes mellitus), type 2 with renal complications: Tejinder Viveros MD R2 Nov 25, 2016 11:02
--- NOTE | 2016-11-25 14:51 | EKG ---
Date Performed: 11/24/2016 Time Performed: 17:28:33 PTAGE: 81 years EKG: ATRIAL FIBRILLATION WITH RAPID VENTRICULAR RESPONSE WITH ABERRANT CONDUCTION OR VENTRICULAR PREMATURE COMPLEXES LEFT VENTRICULAR HYPERTROPHY AND ST-T CHANGE ABNORMAL ECG PREVIOUS TRACING : 11/24/2016 12.40 DOCTOR: Tyler Nolen Interpretating Date/Time 11/25/2016 14:49:14
--- NOTE | 2016-11-25 14:58 | EKG ---
Date Performed: 11/24/2016 Time Performed: 12:40:13 PTAGE: 81 years EKG: ATRIAL FIBRILLATION WITH RAPID VENTRICULAR RESPONSE LEFT VENTRICULAR HYPERTROPHY AND ST-T C HANGE ABNORMAL ECG NO PREVIOUS TRACING DOCTOR: Tyler Nolen Interpretating Date/Time 11/25/2016 14:55:35
--- NOTE | 2016-11-25 16:20 | ECHRPT ---
Indication: ATRIAL FIB AND FLUTTER CONCLUSIONS Normal left ventricular size. Wall thickness is normal. The left ventricular systolic function is hyperdynamic with an estimated ejection fraction in the ra nge of 65- 70%. No regional wall motion abnormalities are present. technically limited study There is trace tricuspid valve regurgitation. There is estimated mild pulmonary hypertension present (range 40-50 mmHg). BP: 112 / 56 HR: 80 Rhythm: Atrial fibrillation, Atrial flut ter MEASUREMENTS (Male / Female) Normal Values Technical Quality:Fair 2D ECHO LV Diastolic Diameter PLAX 4.4 cm 4.2 - 5.9 / 3.9 - 5.3 cm LV Systolic Diameter PLAX 3.0 cm IVS Diastolic Thickness 0.9 cm 0.6 - 1.0 / 0.6 - 0.9 cm LVPW Diastolic Thickness 0.9 cm 0.6 - 1.0 / 0.6 - 0.9 cm LV Relative Wall Thickness 0.4 LVOT Diameter 2.0 cm Aortic Root Diameter 2.6 cm LA Systolic Diameter LX 3.0 cm 3.0 - 4.0 / 2.7 - 3.8 cm M-MODE AV Cusp Separation MM 2.0 cm DOPPLER AV Peak Velocity 123.0 cm/s AV Peak Gradient 6.1 mmHg AV Mean Gradient 4.0 mmHg AV Velocity Time Integral 24.2 cm LVOT Peak Velocity 94.7 cm/s LVOT Peak Gradient 3.6 mmHg LVOT Velocity Time Integral 17.7 cm LVOT Cardiac Index 2559.6 cm/minm AV Area Cont Eq vti 2.3 cm AV Area Cont Eq pk 2.4 cm Mitral E Point Velocity 75.5 cm/s Mitral A Point Velocity 45.4 cm/s Mitral E to A Ratio 1.7 LV E' Lateral Velocity 6.6 cm/s Mitral E to LV E' Lateral Ratio 11.4 LV E' Septal Velocity 4.8 cm/s Mitral E to LV E' Septal Ratio 15.8 TR Peak Velocity 285.0 cm/s TR Peak Gradient 32.5 mmHg PV Peak Velocity 86.5 cm/s PV Peak Gradient 3.0 mmHg FINDINGS LEFT VENTRICLE Normal left ventricular size. Wall thickness is normal. The left ventricular systolic function is hyperdynamic with an estimated ejection fraction in the ra nge of 65- 70%. No regional wall motion abnormalities are present. Left ventricular diastolic function parameters are normal. RIGHT VENTRICLE Normal right ventricular size and systolic function. LEFT ATRIUM The left atrial size is normal. RIGHT ATRIUM The right atrial size is normal. ATRIAL SEPTUM Normal atrial septal thickness without atrial level shunting by limited color doppler interrogation. AORTA The aortic root and proximal ascending aorta are normal in size on limited imaging. MITRAL VALVE Structurally normal mitral valve. No mitral valve stenosis or regurgitation. AORTIC VALVE Trileaflet aortic valve. No aortic valve stenosis or regurgitation. TRICUSPID VALVE Structurally normal tricuspid valve. There is trace tricuspid valve regurgitation. There is estimated mild pulmonary hypertension present (range 40-50 mmHg). PULMONARY VALVE The pulmonary valve is not well visualized. VESSELS The inferior vena cava is normal in size. PERICARDIUM No pericardial effusion. Daniel Teixeira MD, FACC, FSCAI (Electronically Signed) Final Date:25 November 2016 16:19
[2016-11-25 17:35] LABS: APTT (PATIENT) 111.2 SEC (24.3-30.1)
--- NOTE | 2016-11-25 19:36 | MB ---
cc: TOMER AYERS DO DATE OF CONSULTATION: 11/25/2016. REASON FOR CONSULTATION: Atrial fibrillation. HISTORY OF PRESENT ILLNESS: Sharron is a pleasant 81-year-old female who presented to [facility] [place] on November 24, 2016 at the request of Dr. Aponte, her oncologist. On discussing with her and her daughter, it appears that she had been up in [place] recently to visit her daughter. While there, she continually had a headache and was taken to the hospital and found to have metastatic lung cancer to her brain. She was given radiation to her brain while in [place] and then she was flown back home with a plan to start chemotherapy in the next few weeks. Since being home, she has been more and more tired. This morning she started noticing shortness of breath with minimal activity and at rest. It felt like it took her quite a while to catch her breath and she called her daughter to take her on the emergency room. On arrival, she was found to be in atrial fibrillation with rapid ventricular response and was hypotensive. Eventually she responded to medications and vital signs stabilized. Because of her history of cancer as well as her shortness of breath, she underwent a VQ scan which showed a high-risk study for a ventilation perfusion mismatch. In speaking to her at this time, she has no chest pain and her shortness of breath is the better on 2 liters of oxygen. PAST MEDICAL HISTORY: 1. 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 2. Chronic kidney disease. 3. Diabetes mellitus type 2. 4. Hypertension. 5. Coronary artery disease. 6. Chatman's esophagus. 7. Vitamin D insufficiency. 8. Hypertriglyceridemia. PAST SURGICAL HISTORY: 1. CABG x3. 2. Pelvic prolapse surgery. 3. Tonsillectomy. ALLERGIES: 1. ZOFRAN. MEDICATIONS: 1. Niacin 500 milligram in the morning and 1000 milligrams at night. 2. Coreg 25 milligrams twice a day. 3. Iron 65 milligrams every other day. 4. Lasix 20 milligrams daily if needed. 5. Nitro sublingual as needed. 6. Protonix 40 milligrams twice a day. 7. Glipizide 10 milligrams twice a day. FAMILY HISTORY: Father at the age of 47 due to myocardial infarction. Mother at the age is 86 from natural causes. Sister due to complications of diabetes at the age of 67. SOCIAL HISTORY: The patient was a previous smoker for 40 years at one-pack per day. Denies alcohol abuse. Denies drug abuse. REVIEW OF SYSTEMS Fourteen systems were reviewed including osteopathic with pertinent positives and negatives as above; otherwise negative. PHYSICAL EXAMINATION: VITAL SIGNS: Temperature 97.9, heart rate 60, seven blood pressure 135/60, respirations 16, pulse ox 98% on 2 liters. GENERAL: In general the patient appears chronically ill but in no acute distress, alert, awake and oriented x3. HEAD, EYES, EARS, NOSE, THROAT: Extraocular muscles intact. Mucous membranes moist. NECK: The neck is supple. No JVD at 45 degrees. No carotid bruits heard bilaterally. Carotid upstroke is brisk in nature. HEART: Regular rate and rhythm. Positive first and second heart sounds with a 1/6 holosystolic murmur noted at the apex. LUNGS: Decreased breath sounds bilaterally, but no overt wheezes, rales or rhonchi. ABDOMEN: The abdomen is soft, nontender and nondistended. No organomegaly noted. EXTREMITIES: No clubbing, cyanosis or edema. Femoral and distal pulses are intact bilaterally. NEUROLOGIC: No focal deficits. SKIN: Warm, dry and intact. OSTEOPATHIC: Osteopathically, no kyphoscoliosis, lordosis or paraspinal tender points. LABORATORY FINDINGS: Hemoglobin 11.4, hematocrit 34.2, platelets 209,000. Potassium 3.9, BUN 22, creatinine 1.8. Troponin 0.06. EKGS: Electrocardiogram (December 02, 2016 at 2001): Atrial fibrillation with rapid ventricular response, possible old septal infarct. IMPRESSION: 1. New onset atrial fibrillation with rapid ventricular response. 2. Probable acute pulmonary embolism with VQ scan showing high probability 3. Stage IV small cell lung cancer with brain metastasis status post radiation therapy. 4. Chronic kidney disease stage III. 5. Hypertension. 6. Diabetes mellitus. RECOMMENDATIONS: 1. Ms. Wadsworth appears to have presented with atrial fibrillation which is new in onset and may be due to her underlying pulmonary embolus. 2. She has since converted back to sinus rhythm and vital signs stabilized. We will plan on keeping her on her carvedilol 25 milligrams twice a day for beta-martinez therapy. 3. As far as her anticoagulation for atrial fibrillation, I think this is overall difficult as she does have a pulmonary embolus but she also has stage IV cancer with brain metastasis. Overall this will have to be decided further by the primary team with a consideration for neurosurgical consultation as I believe her brain mets puts here at a higher risk of bleeding intracranially. This decision will have to be weighed against her risk for further pulmonary embolus. 4. The primary team is discussing with the patient about consideration of palliative care consult as well as consideration of hospice and overall I think that if this is what the patient would like, I overall agree with this. 5. Her heart rate is currently controlled and from a cardiovascular standpoint, I will plan on signing off. If there are any questions or concerns over the weekend, please call my group for the covering physician. Thank you for allowing me to see Sharron Wadsworth. If there are any questions, please do not hesitate to call. Tomer Ayers DO FOSTER/JCC /5:30 PM /7:26 PM
[2016-11-25 22:04] LABS: APTT (PATIENT) 75.2 SEC (24.3-30.1)
[2016-11-26] VITALS: BP 109/53; PULSE 71; RESP 16; TEMP 99.1; O2SAT 98
--- NOTE | 2016-11-26 00:08 | MB ---
cc: MICHELLE CALABRESE DATE OF CONSULTATION 11/25/16 DATE OF REASON FOR CONSULTATION Patient with extensive stage small cell lung cancer who presents to the emergency room with dyspnea and heart palpitations. HISTORY OF PRESENT ILLNESS Ms. Wadsworth is a 81-year-old female who was recently diagnosed with extensive stage small lung cancer. She was visiting her daughter in [place] and developed facial paresthesias and experienced a left upper extremity weakness. She was taken to the [facility] and MRI was completed which showed numerous intracranial masses of various sizes. These were scattered throughout the cortex of the cerebellum. She was also found to have chest lymphadenopathy. CT of the abdomen showed right adrenal mass. She underwent CT-guided biopsy of the chest mass which confirmed small cell lung carcinoma. This was extensive stage cancer. She received brain radiation and subsequently she traveled back to [place]. She was recently seen in the oncology clinic. The patient has previously seen an oncologist at [facility]. She was recommended chemotherapy since she wanted to pursue aggressive chemotherapy. Upon further conversation with the patient in the clinic she opted to be treated aggressively. The plans were to treat her with dose modified treatment with carboplatin and etoposide. The patient has now acutely decompensated and she has presented to the emergency room with dyspnea and chest pain. She was found to be in a-fib with RVR. Additionally, VQ scan was obtained in the emergency room. She had acute on chronic kidney failure. VQ scan revealed a large right upper VQ mismatch which was highly suggestive of a pulmonary embolism. The patient has seen palliative care. She is leaning towards hospice and palliative care. Both the daughter and the patient have multiple questions regarding her prognosis. At this time she appears comfortable. She is awake and alert. She remained weak. She states that she would like to go home. REVIEW OF SYSTEMS A comprehensive 14-point review of systems was completed which is negative except as described in the HPI. PAST MEDICAL HISTORY Extensive stage small cell lung cancer. Chronic kidney disease, stage IIIB. Diabetes type 2, hypertension, coronary artery disease, status post CABG and SD x1. Chatman's esophagus. Vitamin D deficiency, hyperlipidemia. Hearing loss. Brain metastasis. PAST SURGICAL HISTORY Lymph node biopsy of the chest mass. Three vessel CABG. Pelvic prolapse, tonsillectomy. FAMILY HISTORY Family history was reviewed and is noncontributory to this admission. SOCIAL HISTORY Has approximately 40 pack-years of smoking history. Does not drink alcohol. No recreational drugs. MEDICATIONS 1. Vitamin D3 5000 units every other day. 2. Ferrous sulfate 325 milligrams p.o. every other day. 3. Aspirin 81 milligrams p.o. daily. 4. Digoxin 0.125 milligrams daily. 5. Insulin 7 units subcu t.i.d. 6. Ceftriaxone 1 gram IV q. 12 hours. 7. Debi-Colace 1 tablet p.o. b.i.d. 8. Carvedilol 25 milligrams p.o. b.i.d. 9. Pantoprazole 40 milligrams p.o. b.i.d. ALLERGIES SHE IS ALLERGIC TO ZOFRAN. PHYSICAL EXAMINATION VITAL SIGNS: Blood pressure is 129/58, pulse is in the 80s, temperature is 98.6, O2 sats are 98% on 2 liters of nasal cannula. GENERAL: Elderly lady, acute acutely ill. Appears frail. No apparent distress. HEENT: Pupils are equal, round, reactive to light. EOMI. No thrush. No oral lesions. NECK: Supple. No JVD, no bruits. No lymphadenopathy. CHEST: Chest is clear to auscultation bilaterally. CARDIAC: S1-S2 regular rate and rhythm. ABDOMEN: Abdomen is soft, nontender, nondistended. Bowel sounds are present. EXTREMITIES: Without any edema, erythema or cyanosis. SKIN: Without any petechiae, lesion or bruises. NEURO: No focal deficits. PSYCHIATRIC: Mood and affect is appropriate. LABORATORY DATA WBC 5.8, hemoglobin 11.4, MCV 82.5, platelet count 209. Serum chemistries show sodium of 138, potassium 3.9, chloride 104, CO2 23.6, BUN 22, creatinine 1.8, GFR is 27, glucose is 285, calcium is 8.3, AST 20, ALT is 15, alk phos is 78. Total creatinine CK is 44. Troponin is 0.05, total protein is 5.5, albumin is 2.2. IMAGING STUDIES Imaging was reviewed in the EMR. Chest x-ray showed mild pulmonary vascular congestion. ASSESSMENT/PLAN This is a 81-year-old female with extensive stage small cell lung cancer with brain mets who presents to the emergency room with acute dyspnea and chest pain and was found to be in a-fib with RVR and a pulmonary embolus. 1. Extensive stage small cell lung cancer with brain mets. I had a long discussion with the patient and her daughter. I discussed the prognosis of the disease. I explained to them that overall prognosis is quite poor since she has metastatic disease to the brain and this is extensive stage disease. I had explained to her that without treatment she has a few weeks to one to two months of lifespan. I explained to them that I cannot predict her survival without any treatment. I also discussed the prognosis with treatment. I explained to them that with modified treatment we may be able to palliate her disease. She is an elderly frail lady. I did discuss potential complications that could arise from chemotherapy. At the end the patient decided that she would like to pursue palliative care and hospice and did not opt for any treatment. The patient would like to go home as soon as possible from oncology perspective, she is clear to be discharged from the hospital when feasible. 2. A-fib with RVR, she is rate controlled at this time. VQ scan consistent with high probability of pulmonary embolism. This is in the setting of malignancy. I think for palliative reasons we can discharge her with Lovenox to prevent expansion of the blood clos and further decompensation. There is no contraindication even though she has brain mets. These were not hemorrhagic brain mets. If for some reason the patient decides that she does not want to be on anticoagulation I do not have any objection to this. At this time given her overall prognosis her personal preferences are very important. Thank you for allowing me to participate in the care of this patient. I spent approximately 60 minutes with the patient and her daughter. All questions were answered. Please do not hesitate to call me if any questions. MD SERENA Louise/LUC /10:28 PM /11:43 PM
[2016-11-26 03:45] LABS: APTT (PATIENT) 90.7 SEC (24.3-30.1)
[2016-11-26 04:00] VITALS: BP 126/58; PULSE 72; RESP 16; TEMP 98; O2SAT 98
[2016-11-26] MEDS: cefTRIAXone INJ 1,000 MG in SODIUM CHLORIDE 0.9% INJ 100 ML IV SCH (04:52)
[2016-11-26] MEDS: INSULIN ASPART SUPPLEMENTAL SCALE SQ SCH (06:27)
[2016-11-26 07:59] VITALS: BP 128/61; PULSE 68; RESP 20; TEMP 97.6; O2SAT 98
[2016-11-26] MEDS: INSULIN ASPART 1,000 UNITS/10 ML VIAL SQ SCH (08:00)
--- NOTE | 2016-11-26 08:12 | HHI.DCPOC ---
Discharge Care Plan Diagnosis: (1) Small cell lung cancer (2) Brain metastases (3) UTI (urinary tract infection) (4) Pulmonary embolism Goals to Promote Your Health * To prevent worsening of your condition and complications * To maintain your health at the optimal level Directions to Meet Your Goals Take your medications as prescribed Follow your dietary instruction Follow activity as directed Keep your appointments as scheduled Take your immunizations and boosters as scheduled If your symptoms worsen call your PCP, if no PCP go to Urgent Care Center or Emergency Room Smoking is Dangerous to Your Health. Avoid second hand smoke Call the 24-hour hour crisis hotline for domestic abuse at Tejinder Viveros MD R2 Nov 26, 2016 08:12
[2016-11-26 08:34] LABS: APTT (PATIENT) 78.3 SEC (24.3-30.1)
[2016-11-26] MEDS ORDERED: CHOLECALCIFEROL (VIT D3) 5000 UNIT CAP PO SCH (09:00)
[2016-11-26] MEDS: CARVEDILOL 12.5 MG TAB PO SCH (09:00)
[2016-11-26] MEDS ORDERED: FERROUS SULFATE 325 MG (65 MG ELEMENTAL IRON) TAB PO SCH (09:00)
[2016-11-26] MEDS: MULTIVITAMINS/MINERALS THERAPEUTIC TAB PO SCH (09:00)
[2016-11-26] MEDS: DIGOXIN 0.125 MG TAB PO SCH (09:01)
[2016-11-26] MEDS: PANTOPRAZOLE SOD 40 MG DELAYED RELEASE TAB PO SCH (09:01)
[2016-11-26] MEDS: ASPIRIN 81 MG CHEW TAB PO SCH (09:01)
[2016-11-26] MEDS: DOCUSATE SODIUM 50 MG/SENNA 8.6 MG TAB PO SCH (09:01)
[2016-11-26] MEDS: INSULIN DETEMIR 100 UNITS/ML VIAL SQ SCH (09:11)
--- NOTE | 2016-11-26 09:29 | HHI.FPPN ---
Subjective Remarks Patient and daughter have agreed to hospice care. Hospice has agreed to take the patient. Patient is doing well this morning. She denies fever, chills, nausea, vomiting. Objective Vitals Vital Signs Date Time Temp Pulse Resp B/P Pulse Ox O2 Delivery O2 Flow Rate FiO2 11/26/16 07:59 97.6 68 20 128/61 98 11/26/16 04:00 98.0 72 16 126/58 98 11/26/16 00:00 99.1 71 16 109/53 98 11/25/16 21:00 68 11/25/16 20:28 98 Nasal Cannula 1.50 11/25/16 20:00 98.5 82 17 125/57 98 11/25/16 16:00 100.1 80 16 129/58 98 11/25/16 13:13 98 Nasal Cannula 2.00 11/25/16 12:00 98.6 75 16 105/53 98 11/25/16 11:23 70 I/O 11/25/16 11/25/16 11/25/16 11/26/16 11/26/16 11/26/16 07:00 15:00 23:00 07:00 15:00 23:00 Intake Total 208 ml 144 ml 480 ml 349 ml Balance 208 ml 144 ml 480 ml 349 ml Intake Oral 480 ml 120 ml IV Total 208 ml 144 ml 229 ml # Voids 3 4 2 Result Diagram: 11/24/16 1300 11/24/16 1300 Objective Remarks GENERAL: Well-developed, well-nourished, chronically ill-appearing adult white female lying in bed comfortable SKIN: No rashes, ecchymoses or lesions. Cool and dry. HEAD: NC/AT EYES: PERRL. EOMI. No conjunctival injection or drainage. ENT: MMM, OP without erythema, tonsillar swelling, or exudate. NECK: Supple, no lymphadenopathy. No JVD. CARDIOVASCULAR: Normal rate, irregularly irregular rhythm. Normal S1/S2. No MRG RESPIRATORY: CTAB. No crackles or wheezes. GASTROINTESTINAL: Abdomen soft, non-distended, non-tender. No hepato- splenomegaly or palpable masses. MUSCULOSKELETAL: Extremities without clubbing, cyanosis, or edema. NEUROLOGICAL: Awake and alert. Cranial nerves II through XII grossly intact. Moves all extremities without difficulty. Normal speech. A/P Assessment and Plan 81-year-old female with history of diabetes, coronary artery disease status post CABG, stage IV lung cancer presenting with pulmonary embolism, atrial fibrillation, urinary tract infection. Discharge Planning Discharge today to hospice. Problem List: (1) Pulmonary embolism Status: Acute Plan: VQ scan shows high probability of PE Heparin drip discontinued Start Lovenox as recommended by heme/onc, Dr. Aponte, however, it would be okay if she were not on anticoagulation as her long-term prognosis is not good (2) New onset a-fib Status: Acute Plan: Currently rate controlled. Cardiology consultation Anticoagulation as above - Continue home Coreg 25 mg daily (3) UTI (urinary tract infection) Status: Acute Plan: Urine micro-pending Continue ceftriaxone daily (4) Chronic kidney disease, stage III (moderate) Status: Chronic Plan: Continue light fluid hydration We'll monitor (5) Small cell lung cancer Status: Chronic Plan: Known to Dr. Aponte Consult oncology Hospice consult (6) Congestive heart failure Status: Chronic Plan: - Consult cardiology as above - Continue home Coreg - Caution with IV fluids (7) Hypertension Status: Chronic Plan: Continue home coreg (8) DM (diabetes mellitus), type 2 with renal complications Status: Chronic Plan: Continue Levemir 10 units twice a day Sliding scale insulin (9) FEN Status: Acute Plan: Fluids: As above Electrolytes: Monitor and replete as needed Nutrition: Diet regular basic DVT: Lovenox GI: Continue home Protonix 40 mg 3 times a day for Chatman's esophagus CODE STATUS: DO NOT RESUSCITATE Problem Qualifiers (1) Small cell lung cancer: Qualified Code: C34.90 - Small cell lung cancer, unspecified laterality (2) Hypertension: Qualified Code: I10 - Essential hypertension (3) DM (diabetes mellitus), type 2 with renal complications: Tejinder Viveros MD R2 Nov 26, 2016 09:29
[2016-11-26] MEDS ORDERED: ENOX60P SQ (10:46)
[2016-11-26] MEDS ORDERED: CIPR250T2 PO (10:46)
[2016-11-26 11:10] VITALS: O2SAT 96
[2016-11-26] MEDS ORDERED: ENOXAPARIN SODIUM 60 MG/0.6 ML SYRINGE SQ SCH (18:00)
[2016-11-27] MEDS ORDERED: PANT40TA3 PO (15:17)
[2016-11-28] MEDS ORDERED: OXYGENDME NAS.CANULA (15:59)
== END 2016-11-26 11:58 | disposition hospice, home (50) | DRG 308 ==
LOC: NEPC 12:20 → NEDA 16:20 → HOCA 22:33
PROVIDERS: ADMIT Family Medicine; ATTEND Family Medicine
DX: I48.91 Unspecified atrial fibrillation (principal); I26.99 Other pulmonary embolism without acute cor pulmonale; N17.9 Acute kidney failure, unspecified; C79.31 Secondary malignant neoplasm of brain; I13.0 Hypertensive heart and chronic kidney disease with heart failure and stage 1 through stage 4 chronic kidney disease, or unspecified chronic kidney disease; N18.3 Chronic kidney disease, stage 3 (moderate); C34.90 Malignant neoplasm of unspecified part of unspecified bronchus or lung; E86.0 Dehydration; I50.9 Heart failure, unspecified; N39.0 Urinary tract infection, site not specified; E11.22 Type 2 diabetes mellitus with diabetic chronic kidney disease; Z79.4 Long term (current) use of insulin; E55.9 Vitamin D deficiency, unspecified; K22.70 Barrett's esophagus without dysplasia; Z95.1 Presence of aortocoronary bypass graft; I25.10 Atherosclerotic heart disease of native coronary artery without angina pectoris; E78.1 Pure hyperglyceridemia; H91.93 Unspecified hearing loss, bilateral; Z66 Do not resuscitate; Z51.5 Encounter for palliative care; Z92.3 Personal history of irradiation; Z87.891 Personal history of nicotine dependence
CPT/HCPCS: 36600; 71010; 78582; 80053; 80162; 81001; 82550; 82805; 82948; 83605; 83880; 84443; 84484; 85025; 85610; 85730; 87040; 87077; 87086; 87186; 93005; 93306; 94664; 96365; 96523; A9540; A9567; J0696; J1160; J1642; J1644; J1815; J7030